=== PATIENT | male | born 1965 | race African-American/Black ===

== ENCOUNTER 2020-04-14 06:24 | Emergency (ER) | payer OTHER ==
[~2020-04-14] VITALS: Ht 180.3 cm; Wt 90.9 kg
--- NOTE | 2020-04-14 06:42 | PHYS DOC ---
General Adult EDM: Chief Complaint: FOOT INJURY PAIN HPI: HPI: Patient is a 54-year-old male who presents to the emergency room complaining of severe foot pain after a chain fell and hit his foot. He states that he felt crunching in his foot. He denies any numbness. He still able to move the foot but it is significantly painful. He denies any other injuries. He was not wearing stilted boots when this occurred. Review of Systems: Review of Systems: Negative other than noted Heart Score: Risk Factors: Risk Factors: DM, Current or recent (<one month) smoker, HTN, HLP, family history of CAD, obesity. Risk Scores: Score 0 - 3: 2.5% MACE over next 6 weeks - Discharge Home Score 4 - 6: 20.3% MACE over next 6 weeks - Admit for Clinical Observation Score 7 - 10: 72.7% MACE over next 6 weeks - Early Invasive Strategies Physical Exam: PE: General: Awake, alert, NAD. Well Nourished, well hydrated. Cooperative HEENT: [Atraumatic], EOMI, PERRL, airway patent, moist oral mucosa, no nasal septal hematoma, no facial crepitus or deformity Neck: Supple, trachea midline,[no c-spine tenderness] Respiratory: CTA bilaterally, normal effort, no wheezing/crackles, no crepitus CV: RRR, no murmur, cap refill <2, 2+ bilateral radial/DP pulses GI: Soft, nondistended, nontender, no masses MSK: Left foot: Tenderness along at the 2-4 metatarsals, intact range of motion, intact sensation, pelvis stable and nontender Skin: Warm, dry, [intact] Neuro: A&O x3, speech NL, sensory and motor grossly intact, no focal deficits Psych: Normal affect, normal mood, not suicidal or homicidal EKG: EKG: [] Radiology/Procedures: Radiology/Procedures: [] Course & Med Decision Making: Course & Med Decision Making Pertinent Labs and Imaging studies reviewed. (See chart for details) Patient is 34-year-old male presents to the emergency room complaining of severe foot pain after a chain fell and hit his foot. Patient has intact sensation and range of motion. He does have significant tenderness. X-rays will be ordered. There is no breakage in the skin or significant deformity upon initial evaluation. X-ray shows multiple metacarpal fractures. I have discussed this with the on-call orthopedic surgeon Dr. Kaden Vargas. He requests a CT scan which was ordered. He states patient is stable for discharge at this time and he will see him in clinic later this week. He was placed in a walking boot and will be made nonweight bearing per r orthopedic surgery Dragon Disclaimer: Dragcurt Disclaimer: This electronic medical record was generated, in whole or in part, using a voice recognition dictation system. Departure Departure Impression: Primary Impression: Multiple closed fractures of metatarsal bone Disposition: HOME, SELF-CARE Referrals: DIONISIO CRAFT II, MD Patient Instructions: Foot Fracture Scripts Oxycodone/Apap 5-325 (PERCOCET 5-325 MG TABLET ) 1 Each Tablet 1 TAB PO PRN Q6HRS PRN for PAIN, #15 TAB 0 Refills Prov: LEWIS WHITNEY MD 04/14/20 LEWIS WHITNEY MD Apr 14, 2020 06:42
--- NOTE | 2020-04-14 06:55 | RAD ---
Right foot x-rays 3 views HISTORY: Right foot pain, crush injury. FINDINGS: Acute traumatic nondisplaced transverse fractures of the second, third and fourth metacarpal shafts. There is acute traumatic comminuted fracture of the proximal first metatarsal shaft with mild buckling and distraction. Mild hallux valgus deformity. No dislocation. Small chronic appearing ossicle along the anterior calcaneus on the lateral view. No distraction between the bases of the first and second metatarsals or tarsal bones to suggest distraction of the Lisfranc ligament attachment. IMPRESSION: Acute traumatic fractures of the metatarsals as described above. Electronically signed by: David Mascorro MD (04/14/2020 6:52 AM) [facility]
[2020-04-14] MEDS ORDERED: oxyCODONE/APAP 5/325 1 TAB TABLET PO ONE (07:15)
[2020-04-14] MEDS ORDERED: oxyCODONE/APAP 5/325 1 TAB TABLET ONE (07:24)
[2020-04-14] MEDS ORDERED: oxyCODONE/APAP 10/325 1 TAB TABLET PO ONE (07:30)
--- NOTE | 2020-04-14 08:37 | RAD ---
EXAM: CT right foot without IV contrast INDICATION: Reason: Right foot fractures today, evaluate for lisfranc / Spl. Instructions: / History: TECHNIQUE: Helical CT of the right foot was performed at 2 mm slice thickness and reviewed in multiplanar reformats. All CT scans performed at this facility utilize dose optimization techniques as appropriate to the exam, including the following: Automated exposure control and adjustment of the mA and/or KV according to patient size (this includes techniques or standardized protocols for targeted exams where dose is indication/reason for exam). IV CONTRAST: Administered COMPARISON: None FINDINGS: There are multiple acute fractures through the metatarsals of the first through fifth digits. These occur at the mid to distal shafts and did not involve the tarsometatarsal or intermetatarsal joints of the Lisfranc ligaments. The mid and hindfoot bones are unremarkable. IMPRESSION: Multiple acute nondisplaced transverse fractures of the metatarsals of the right foot with no evidence of Lisfranc injury. Electronically signed by: Marylin Grigsby MD (04/14/2020 8:35 AM) [facility]
[2020-04-14] MEDS ORDERED: OXYC1TAB15 PO (08:49)
[2020-04-14 08:50] VITALS: BP 171/83
== END 2020-04-14 09:07 | disposition home or self-care (01) ==
LOC: ER 06:24
DX: S92.334A Nondisplaced fracture of third metatarsal bone, right foot, initial encounter for closed fracture (principal); S92.344A Nondisplaced fracture of fourth metatarsal bone, right foot, initial encounter for closed fracture; S92.324A Nondisplaced fracture of second metatarsal bone, right foot, initial encounter for closed fracture; R20.2 Paresthesia of skin; W18.09XA Striking against other object with subsequent fall, initial encounter; Y93.89 Activity, other specified; Y92.89 Other specified places as the place of occurrence of the external cause; Y99.8 Other external cause status
CPT/HCPCS: 73630; 73700; 99284